=== PATIENT | female | born 1975 | race Caucasian/White ===

== ENCOUNTER 2017-01-08 07:58 | Day surgery (SDC) | payer OTHER ==
[~2017-01-08] VITALS: Ht 165.1 cm; Wt 70.0 kg
[~2017-01-08 07:58] MED LIST: ALBU18HF INH; ALPR0.254 PO; CETI5TAB28 PO; CYCL5TAB PO; DIPH25CA6 PO; HYDR28OI2 TP; MUPI1OIN6 TP; RANI-426 PO; ZOLP5TAB6 PO
[2017-01-08] MEDS ORDERED: Propofol 10,000 mCg/mL 20 mL Inj ONE (07:59)
[2017-01-08 08:11] VITALS: BP 131/92; PULSE 94; RESP 16; O2SAT 100
[2017-01-08] MEDS ORDERED: MARIJUANA (08:16)
--- NOTE | 2017-01-08 08:48 | PCM.HPANE ---
Patient Data Surgeon Admitting Provider: Attending Provider:Sea Richards MD Primary Care Physician:Naseem George MD Other Provider:Vladimir Mccauley Anesthesia Reason for Visit Rectal Bleeding Ht/WT & BMI Height (Feet): 5 Height (Inches): 5 Weight (Kilograms): 70 Body Mass Index 25.00 Allergies Coded Allergies: acetaminophen (Verified Allergy, Unknown, 01/08/17) hydrocodone (Verified Allergy, Unknown, 01/08/17) Uncoded Allergies: codiene (Allergy, Unknown, 01/07/17) Past Anesthesia History Anesthesia History: Denies:: Abnormal Airway, Anesthesia Reactions, Difficult Intubation, Fam Anesthesia Reaction, Fam Malignant Hypertherm, Malignant Hyperthermia Diabetes History Hx Diabetes?: No MRSA MRSA: No Medications Reported Medications [Marijuana] No Conflict Check 01/08/17 diphenhydrAMINE HCl (Benadryl)25 Mg [id number] Mg PO Q4 PRN For Itching Ref 0 01/07/17 Zolpidem 5 Mg Tablet5 Mg PO HS PRN For Insomnia Ref 0 01/07/17 Albuterol Sulfate (Ventolin HFA Inhaler)200 Puff/18 Gm Inhaler1 Puff INH Q4 PRN For Wheezing #1 INHALER Ref 0 01/07/17 Ranitidine 75 Mg Kvbyjb25 Mg PO DAILY Ref 0 01/07/17 Mupirocin 2 % Oin.pf.app1 Gm TP 01/07/17 Hydrocortisone Acetate (Hydrocortisone)28 Gm Oint...g.28 Gm TP 01/07/17 Cyclobenzaprine 5 Mg Tablet5 Mg PO TID PRN Spasm 01/07/17 Cetirizine 5 Mg Tablet5 Mg PO HS Ref 0 01/07/17 Alprazolam 0.25 Mg Tablet0.25 Mg PO TID PRN For Anxiety Ref 0 01/07/17 History History of ENT Problems?: No HEENT History: Positive for:: Dysphagia Denies:: Abnormal Airway Cataracts Difficult Intubation Glaucoma Hearing Problem Sinus Problem TMJ Denture Type: None Teeth Condition: Within Normal Limits Hx of Heart Problems?: No Cardiovascular History: Denies:: AICD Abdominal Aortic Aneurism Atrial Fibrillation Cardiac Surgery Chest Pain Congestive Heart Failure Coronary Artery Disease Edema Heart Murmur Hypertension Irregular Heartbeat Pacemaker Peripheral Vascular Rheumatic Fever Thrombophlebitis Valvular Heart Disease Hx of Respiratory Problem?: Yes Respiratory History: Positive for:: Asthma (ALLERGY) Denies:: COPD Chest Surgery Cough Dyspnea Emphysema Hemoptysis Oxygen Administration Pneumonia Pulmonary Embolism Tuberculosis Use of C-PAP Machine Use of Inhalers / NEBS Hx Neurologic Problems?: No Neurological History: Denies:: Alzheimer's Disease CVA Dementia Dizziness Headaches Multiple Sclerosis Parkinson's Disease Peripheral Neuropathy Seizures TIA Hx of GI Problems?: Yes Gastrointestinal History: Denies:: Cirrhosis Diverticulitis Gall Bladder Disease Gastroesphageal Reflux Gastrointestinal Bleeding Heartburn Hepatitis Hiatal Hernia Liver Disease Rectal Bleeding Hx of Problems?: No Genitourinary History: Denies:: HX of Hemodialysis Kidney Stones Urinary Tract Infection Female Hx: Denies:: Currently (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 Skin History: Denies:: History Skin Disorders? Pressure Ulcers Hx Musculoskeletal Problems?: No Musculoskeletal History: Denies:: Back Injury Degenerative Joint Fibromyalgia Joint Replacement Musculoskeletal Trauma Myasthenia Gravis Osteoarthritis Rheumatoid Arthritis Systemic Lupus Psycho Social History: Positive for:: Anxiety Hx Depression Denies:: Bipolar Disorder Suicide Attempt Hx Surgeries?: Yes (SKIN GRAFT) Hx Any Other Health Problems?: Yes Hx Diabetes: No Hx Alcohol Use: Yes ("LOTS OF ALCOHOL") Stop/Bang Treated for Sleep Apnea?: No Do You Have a CPAP Machine?: No S-Snoring: Do You Snore Loudly: No T-Tired: feel tired, fatigued: No O-Obsered: Observed not breath: No P-Blood Pressure: treated: No B- Body Mass Index > 35 kg/m2: No A- Age over 50: No N- Neck Large Circumference: No G- Gender Male: No BLAZE Total Score: 0 Risk Assessment Category Category 1A: Patient has history of documented sleep apnea, and HAS NOT received any narcotic, sedative or anesthesia administration during this stay. Category 1B: Patient has history of documented sleep apnea, and HAS received any narcotic , sedative or anesthesia administration during this stay Category 2: Patient has SUSPECTED Obstructive Sleep Apnea, and HAS received any narcotic , sedative or anesthesia administration during this stay. Category 3: Patient has SUSPECTED Obstructive Sleep Apnea and HAS NOT received narcotic, sedative or anesthesia administration during this stay. Category 4: Outpatient in Procedural Areas with known sleep apnea or who screen positive for High Risk via the STOP/BANG questionnaire. Exam Exam Vital Signs Vital Signs Date Time Temp Pulse Resp B/P Pulse Ox O2 Delivery O2 Flow Rate FiO2 01/08/17 08:11 36.6 94 16 131/92 100 Room Air General Appearance: Alert, Oriented X3, No Acute Distress HEENT/AIRWAY: MP 2 Lungs: Normal Air Movement Heart: Regular Rate/Rhythm Plan Impression Patient chart reviewed, patient interviewed and anesthestic plan with risks, benefits, and alternatives discussed, and informed consent obtained. ASA Physical Status: ASA3 Severe Disease Anesthetic Plan: MAC Bene/Risks/Altern/Consents: Yes HP Complete Prior to Induction: Yes Kayla Vizcarra DO Jan 08, 2017 08:48
[2017-01-08] MEDS: Lactated Ringer's 1,000 ML IV ONE ×2 (08:51→08:58)
[2017-01-08 09:03] VITALS: BP 105/74; PULSE 98; RESP 16; O2SAT 98
[2017-01-08 09:13] VITALS: BP 115/77; PULSE 94; RESP 16; O2SAT 99
[2017-01-08 09:22] VITALS: BP 123/85; PULSE 99; RESP 16; O2SAT 100
--- NOTE | 2017-01-08 09:52 | PCM.ANEP1 ---
Post Anesthesia Phase 1 PACU Phase 1 Assessment Vital Signs Vital Signs Date Time Temp Pulse Resp B/P Pulse Ox O2 Delivery O2 Flow Rate FiO2 01/08/17 09:22 99 16 123/85 100 Room Air 01/08/17 09:13 94 16 115/77 99 Room Air 01/08/17 09:03 98 16 105/74 98 Room Air 01/08/17 08:11 36.6 94 16 131/92 100 Room Air Anesthetic Administered: MAC Level of Alertness: Awake, talking LOPEZ's with Equal Strength: Yes Pain: No Nausea or Vomiting: No Oxygen Delivery: Room Air Lungs: Normal Air Movement Complications: No Kayla Vizcarra DO Jan 08, 2017 09:52
--- NOTE | 2017-01-08 13:29 | ENDO ---
[address] [address] ENDOSCOPY PROCEDURE PATIENT: HITESH NICHOLSON : 1975 MR#: [id number] ADMIT: 01/08/2017 JOB ID: [id number] DATE: 01/08/2017 OPERATION: Colonoscopy. PREOPERATIVE DIAGNOSIS(ES): Rectal bleeding. POSTOPERATIVE DIAGNOSIS(ES): Small internal hemorrhoids. ANESTHESIA: Monitored anesthesia care. COMPLICATION: None. BLOOD LOSS: Minimal. DESCRIPTION OF PROCEDURE: After risks and benefits were explained to the patient, informed consent was obtained. After anesthesia administered, a colonoscope was inserted into rectum to cecum and mucosa carefully examined. Prep of the patient was excellent. After the procedure was done, the scope was withdrawn and procedure was terminated. FINDINGS: Upon inspection of the anus, no masses, hemorrhoids, ulcers, or fissures were seen throughout the entire examination. There were no polyps, masses, or lesions. Retroflexion showed small internal hemorrhoids. IMPRESSION: Small internal hemorrhoids. RECOMMENDATION: Stool softer as needed. Repeat colonoscopy in 10 years for colorectal cancer screening.
== END 2017-01-08 23:59 | disposition home or self-care (01) ==
LOC: END 07:58
PROVIDERS: ATTEND Internal Medicine Gastroenterology
DX: K64.8 Other hemorrhoids (principal); F41.9 Anxiety disorder, unspecified; F41.0 Panic disorder [episodic paroxysmal anxiety]; K21.9 Gastro-esophageal reflux disease without esophagitis; F12.90 Cannabis use, unspecified, uncomplicated; J45.909 Unspecified asthma, uncomplicated
CPT/HCPCS: 45378; J2250; J7120